=== PATIENT | female | born 1990 | race Caucasian/White ===

== ENCOUNTER 2019-12-24 16:25 | Emergency (ER) | payer OTHER, SELFPAY ==
--- NOTE | ~2019-12-24 | XR_ITS ---
EXAMINATION: XR finger 1st LT min 2V EXAM DATE: 12/24/2019 17:01 INDICATION: Initial encounter following injury, with pain of the left first finger. TECHNIQUE: Left first finger frontal, lateral and oblique projections obtained and reviewed. There is no prior study for comparison. FINDINGS: There is acute transverse fracture through the shaft of the left first distal phalanx. The re is 1 mm volar displacement. Closed, posttraumatic fracture. There is overlying soft tissue swelli ng. No other acute findings. IMPRESSION: Left first distal phalangeal shaft fracture. Reviewed, dictated and finalized at location A. [employer]
[2019-12-24 16:48] VITALS: BP 142/75; PULSE 90; RESP 16; TEMP 37.1; O2SAT 100
--- NOTE | 2019-12-24 17:12 | ED.LOWEXIN ---
HPI - Extremity Injury (Lower) General Chief Complaint: Extremity Injury, Upper Stated Complaint: Injury Left thumb Time Seen by Provider: 12/24/19 17:04 Source: patient and RN notes reviewed Mode of arrival: ambulatory Limitations: no limitations History of Present Illness HPI Narrative: Patient presents today complaining of an injury to her left thumb. She was walking her dogs when 1 of the dog started to run off, pulling the leash, catching the loop of the lesion on her left thumb. Injury occurred around 1530 this evening. She does report some numbness to the tip of the finger. She is right-hand dominant. She applied ice prior to arrival. She currently rates her pain 5/10 and describes it as throbbing. Pain increases with movement or touching. She has tried no medication for symptoms prior to arrival. MD complaint: other (Left thumb injury) PMFSH Comments At time of signature, I have reviewed and agree with nursing past medical, surgical, social and family history unless otherwise noted. Please see nursing chart for further information. There is no relevant family history pertinent to the presenting complaint Exam Narrative: Exam Narrative: GENERAL: Well-appearing, well-nourished, and in no acute distress. HEAD: Normocephalic, atraumatic. EYES: EOMI. No redness or drainage. ENT: Mucous membranes pink and moist. NECK: Normal AROM. CHEST: No respiratory distress. EXTREMITIES: Left thumb: Moderate swelling and ecchymosis to the thumb, most concentrated at the interphalangeal joint. Patient is unable to fully extend her finger. Distal sensation intact. Capillary refill normal. Nail is unaffected. No snuffbox tenderness. No tenderness to the metacarpal. SKIN: Warm, dry, no rash. NEURO: No focal deficits. Alert and oriented x3. Gait steady. PSYCH: Normal affect. No signs of depression or anxiety. Course Vital Signs Vital signs: Vital Signs Temperature 98.8 F 12/24/19 16:48 Pulse Rate 90 12/24/19 16:48 Respiratory Rate 16 12/24/19 16:48 Blood Pressure 142/75 H 12/24/19 16:48 Pulse Oximetry 100 12/24/19 16:48 Temperature 98.8 F 12/24/19 16:48 Pulse Rate 90 12/24/19 16:48 Respiratory Rate 16 12/24/19 16:48 Blood Pressure 142/75 H 12/24/19 16:48 Pulse Oximetry 100 12/24/19 16:48 Reviewed. Pt has been instructed to follow up with her PCP regarding her elevated blood pressure today. MDM - Extremity Injury (Lower) Differential Diagnosis Differential diagnosis: Likely other (Finger fracture, finger sprain, tendon injury) Critical Care Time Critical Care Time Critical Care Time: No Discharge Plan Discharge Clinical Impression: Closed fracture of left thumb Qualifiers: Encounter type: initial encounter Phalanx: distal Fracture alignment: displaced Qualified Code(s): S62.522A - Displaced fracture of distal phalanx of left thumb, initial encounter for closed fracture Patient Disposition: Home, Self-Care Condition: Stable Instructions: Finger Fracture (ED) Additional Instructions: Your x-ray shows a fracture of your thumb. Please keep the splint intact. Take anti-inflammatory such as Aleve or ibuprofen. Please follow-up with hand specialist for further evaluation of your thumb. Your blood pressure was elevated above 120/80 today at Urgent Care. This puts you above the threshold for follow up. Please schedule a followup visit with your personal physician as soon as possible, for further evaluation and treatment. Even blood pressure exceeding 120/80 may indicate pre-hypertension. Patient Language: Mongolian Follow-up/Referrals: Naldo Montanez MD [Physician] - 3 Days UNKNOWN,DOCTOR [Primary Care Provider] - Time of Disposition: 17:17
== END 2019-12-24 17:24 | disposition home or self-care (01) ==
PROVIDERS: Emergency Provider Nurse Practitioner
DX: S62.522A Displaced fracture of distal phalanx of left thumb, initial encounter for closed fracture (principal); X58.XXXA Exposure to other specified factors, initial encounter; Y93.K1 Activity, walking an animal
CPT/HCPCS: 29130; 73140; 99204; G0463